=== PATIENT | female | born 1940 | race Native Hawaiian/Other Pacific Islander ===

== ENCOUNTER 2016-11-06 20:18 | Inpatient (IN) | payer MEDICARE, MEDICAID ==
[~2016-11-06] VITALS: Ht 160 cm; Wt 64.8 kg
[~2016-11-06 20:18] MED LIST: ASPI81TA82 PO; CARV6.252 PO; CENTTAB9 PO; CLON1 PO; FENO145T2 PO; FURO10S PO; NOVOLOGMXP SQ; OMEP20TA39 PO; TRAD5TAB PO; TRIM100T8 PO; VESI5TAB PO
[2016-11-06 20:23] VITALS: BP 153/69; PULSE 74; RESP 18; TEMP 98.1; O2SAT 99
[2016-11-06 20:29] VITALS: O2SAT 99
[2016-11-06] MEDS ORDERED: SODIUM CHLORIDE 0.9% FLUSH 10 ML FLUSH IVF PRN (20:30)
[2016-11-06] MEDS ORDERED: ASPIRIN 81 MG CHEW TAB PO ONE (20:30)
[2016-11-06 20:42] VITALS: BP 161/88
--- NOTE | 2016-11-06 20:44 | RADRPT ---
EXAM DATE/TIME: 11/06/2016 20:32 [facility] COMPARISON: No previous studies available for comparison. INDICATIONS : Chest pain. MEDICAL HISTORY : Hypertension. Renal failure. SURGICAL HISTORY : None. ENCOUNTER: Initial ACUITY: 1 day PAIN SCORE: Non-responsive. LOCATION: Bilateral chest FINDINGS: A single view of the chest demonstrates the lungs to be symmetrically aerated without evidence of mas s, infiltrate or effusion. The cardiomediastinal contours are unremarkable. Osseous structures are intact. CONCLUSION: No acute disease. Frantz Ryder MD on November 06, 2016 at 20:42 Board Certified Radiologist. This report was verified electronically.
[2016-11-06] MEDS ORDERED: PROT40TA PO (20:45)
[2016-11-06] MEDS ORDERED: LIDOCAINE VISCOUS 2% SOLN 15 ML UDC PO ONE (21:00)
[2016-11-06] MEDS ORDERED: ALUMINUM/MAGNESIUM/SIMETH 30 ML CUP PO ONE (21:00)
[2016-11-06] MEDS ORDERED: FAMOTIDINE 20 MG/2 ML VIAL IV PUSH ONE (21:00)
[2016-11-06 21:01] LABS: AUTOMATED NEUTROPHIL # 10.4 TH/MM3 (1.8-7.7); BASOPHIL # 0.1 TH/MM3 (0-0.2); BASOPHIL % 0.6 % (0.0-2.0); EOSINOPHIL # 0.2 TH/MM3 (0-0.4); EOSINOPHIL % 1.6 % (0.0-4.0); HEMATOCRIT 35.5 % (35.0-46.0); HEMO FLAGS DIFF FINAL; LYMPH % 17.8 % (9.0-44.0); LYMPHOCYTE # 2.6 TH/MM3 (1.0-4.8); MEAN CELL VOLUME 86.6 FL (80.0-100.0); MEAN CORPUSCULAR HGB CONC 32.3 % (32.0-36.0); MONO % 7.3 % (0.0-8.0); NEUT % 72.7 % (16.0-70.0); PLATELET COUNT 289 TH/MM3 (150-450); RED BLOOD COUNT 4.09 MIL/MM3 (4.00-5.30); RED CELL DISTRIBUTION WIDTH 13.5 % (11.6-17.2); WHITE BLOOD COUNT 14.3 TH/MM3 (4.0-11.0)
[2016-11-06 21:14] LABS: APTT (PATIENT) 26.6 SEC (24.3-30.1); PROTHROMBIN TIME - PATIENT 10.8 SEC (9.8-11.6)
[2016-11-06 21:25] LABS: ALT (GPT) 20 U/L (10-53); ANION GAP 9 MEQ/L (5-15); AST (GOT) 18 U/L (15-37); BICARBONATE 21.2 MEQ/L (21.0-32.0); BLOOD UREA NITROGEN 33 MG/DL (7-18); CHLORIDE 99 MEQ/L (98-107); GLOMERULAR FILTRATION RATE 37 ML/MIN (>89); MAGNESIUM 1.6 MG/DL (1.5-2.5); POTASSIUM 6.1 MEQ/L (3.5-5.1); SODIUM (NA) 129 MEQ/L (136-145)
[2016-11-06 21:29] LABS: ALKALINE PHOSPHATASE 96 U/L (45-117); TOTAL BILIRUBIN ADULT 0.3 MG/DL (0.2-1.0)
[2016-11-06 21:32] LABS: CREATINE KINASE 68 U/L (26-192)
[2016-11-06] MEDS ORDERED: SODIUM POLYSTYRENE SULFONATE SUSP 15 GM/60 ML CUP PO ONE (21:45)
[2016-11-06] MEDS ORDERED: SODIUM CHLORID 0.9% 500 ML INJ 500 ML IV ONE (21:45)
[2016-11-06] MEDS ORDERED: HEPARIN SODIUM - IV 10,000 UNITS/10 ML VIAL IV ONE (21:45)
[2016-11-06] MEDS ORDERED: INSULIN HUMAN REGULAR 1,000 UNITS/10 ML VIAL IV PUSH ONE (21:45)
[2016-11-06] MEDS ORDERED: CALCIUM GLUCONATE 10% 1 GM/10 ML VIAL IV PUSH ONE (21:45)
[2016-11-06] MEDS ORDERED: MORPHINE SULFATE 4 MG/ML INJ IV PUSH ONE (21:45)
[2016-11-06] MEDS ORDERED: DEXTROSE 50% IN WATER 50 ML SYRINGE IV ONE (21:45)
--- NOTE | 2016-11-06 22:00 | PD ---
HPI Chief Complaint: Chest Pain Time Seen by Provider: 20:20 Travel History International Travel<30 days: No Contact w/Intl Traveler<30days: No Traveled to known affect area: No History of Present Illness HPI Patient is a 76-year-old female who comes in complaining of chest pain. She was walking up the stairs at a graduation when she felt pain in her back and then pain in her chest. She says she has never had pain like this before. She has not had any shortness of breath. She has not had any nausea or vomiting. She says right now the pain is in the center of her chest. Per family, she had a cardiac cath done in 2013 which was normal. She does have history of diabetes as well as hypertension. [facility] Past Medical History Diabetes: Yes Patient Takes Glucophage: No Diminished Hearing: No Hypertension: Yes Thyroid Disease: Yes (HYPO) Tetanus Vaccination: Unknown Influenza Vaccination: No ?: Not Social History Alcohol Use: No Tobacco Use: No Substance Use: No Allergies-Medications (Allergen,Severity, Reaction): Coded Allergies: No Known Allergies (Unverified , 11/06/16) Reported Meds & Prescriptions Reported Meds & Active Scripts Active Reported Protonix (Pantoprazole Sodium) 40 Mg Tab 40 Mg PO DAILY Novolog Mix 70/30 (Insulin Aspart Prota 70%/Aspart 30%) 100 Units/Ml Inj 16 Units SQ DAILYAC 16 UNITS AM/ 8 UNITS PM Centrum (Multivitamins) Tab 1 Tab PO DAILY Aspir-81 (Aspirin) 81 Mg Tab 81 Mg PO DAILY Fenofibrate 145 Mg Tab 145 Mg PO DAILY Tradjenta (Linagliptin) 5 Mg Tab 5 Mg PO DAILY Review of Systems Except as stated in HPI: all other systems reviewed are Neg General / Constitutional: No: Fever, Chills HENT: No: Headaches, Lightheadedness Cardiovascular: Positive: Chest Pain or Discomfort Respiratory: No: Cough, Shortness of Breath Gastrointestinal: No: Nausea, Vomiting Musculoskeletal: Positive: Pain Skin: No Rash, No Change in Pigmentation Neurologic: No: Weakness, Dizziness Physical Exam Narrative GENERAL: Awake and alert, in no acute distress. SKIN: Focused skin assessment warm/dry. HEAD: Atraumatic. Normocephalic. EYES: Pupils equal and round. No scleral icterus. ENT: Mucous membranes pink and moist. NECK: Trachea midline. No JVD. CARDIOVASCULAR: Regular rate and rhythm. No murmur appreciated. RESPIRATORY: No accessory muscle use. Clear to auscultation. Breath sounds equal bilaterally. GASTROINTESTINAL: Abdomen soft, non-tender, nondistended. MUSCULOSKELETAL: No obvious deformities. No clubbing. No cyanosis. No edema. NEUROLOGICAL: Awake and alert. No obvious cranial nerve deficits. Motor grossly within normal limits. Normal speech. PSYCHIATRIC: Appropriate mood and affect; insight and judgment normal. Data Data Last Documented VS Vital Signs Date Time Temp Pulse Resp B/P Pulse Ox O2 Delivery O2 Flow Rate FiO2 11/06/16 20:42 161/88 11/06/16 20:39 74 11/06/16 20:29 99 Nasal Cannula 2 11/06/16 20:23 98.1 18 Orders Ckmb (Isoenzyme) Profile (11/06/16 20:21) Complete Blood Count With Diff (11/06/16 20:21) Comprehensive Metabolic Panel (11/06/16 20:21) Magnesium (Mg) (11/06/16 20:21) Prothrombin Time / Inr (Pt) (11/06/16 20:21) Act Partial Throm Time (Ptt) (11/06/16 20:21) Troponin I (11/06/16 20:21) Lipase (11/06/16 20:21) Chest, Single Ap (11/06/16 20:21) Ecg Monitoring (11/06/16 20:21) Bilateral Bp Monitoring (11/06/16 20:21) Iv Access Insert/Monitor (11/06/16 20:21) Oximetry (11/06/16 20:21) Oxygen Administration (11/06/16 20:21) Aspirin Chew (Aspirin Chew) (11/06/16 20:30) Sodium Chloride 0.9% Flush (Ns Flush) (11/06/16 20:30) Famotidine Inj (Pepcid Inj) (11/06/16 21:00) Al-Mag Hy-Si 40-40-4 Mg/Ml Liq (Mag-Al P (11/06/16 21:00) Lidocaine 2% Viscous (Xylocaine 2% Visco (11/06/16 21:00) Electrocardiogram (11/06/16 20:15) Heparin Infusion KATHARINE.Q1H (11/06/16 21:41) Heparin Inj (Heparin Inj) (11/06/16 21:45) Heparin Inj (Heparin Inj) (11/07/16 03:45) Heparin Inj (Heparin Inj) (11/07/16 03:45) Heparin-D5w Inj (Heparin-D5w Inj) (11/06/16 21:45) Cbc No Diff, Includes Plts (11/09/16 06:00) Act Partial Throm Time (Ptt) (11/07/16 04:41) Occult Blood (Hemoccult) Stool (11/06/16 21:41) Sodium Chlorid 0.9% 500 Ml Inj (Ns 500 M (11/06/16 21:45) Insulin Human Regular Inj (Novolin R Inj (11/06/16 21:45) Dextrose 50% In Avery (Syr) Inj (D50w (Syr (11/06/16 21:45) Sodium Polysty Sulfate Liq (Kayexalate L (11/06/16 21:45) Calcium Gluconate Inj (Calcium Gluconate (11/06/16 21:45) Morphine Inj (Morphine Inj) (11/06/16 21:45) Admit Order (Ed Use Only) (11/06/16 ) Labs Laboratory Tests Test 11/06/16 20:28 White Blood Count 14.3 TH/MM3 Red Blood Count 4.09 MIL/MM3 Hemoglobin 11.5 GM/DL Hematocrit 35.5 % Mean Corpuscular Volume 86.6 FL Mean Corpuscular Hemoglobin 28.0 PG Mean Corpuscular Hemoglobin 32.3 % Concent Red Cell Distribution Width 13.5 % Platelet Count 289 TH/MM3 Mean Platelet Volume 8.6 FL Neutrophils (%) (Auto) 72.7 % Lymphocytes (%) (Auto) 17.8 % Monocytes (%) (Auto) 7.3 % Eosinophils (%) (Auto) 1.6 % Basophils (%) (Auto) 0.6 % Neutrophils # (Auto) 10.4 TH/MM3 Lymphocytes # (Auto) 2.6 TH/MM3 Monocytes # (Auto) 1.0 TH/MM3 Eosinophils # (Auto) 0.2 TH/MM3 Basophils # (Auto) 0.1 TH/MM3 CBC Comment DIFF FINAL Differential Comment Prothrombin Time 10.8 SEC Prothromb Time International 1.0 RATIO Ratio Activated Partial 26.6 SEC Thromboplast Time Sodium Level 129 MEQ/L Potassium Level 6.1 MEQ/L Chloride Level 99 MEQ/L Carbon Dioxide Level 21.2 MEQ/L Anion Gap 9 MEQ/L Blood Urea Nitrogen 33 MG/DL Creatinine 1.40 MG/DL Estimat Glomerular Filtration 37 ML/MIN Rate Random Glucose 171 MG/DL Calcium Level 9.0 MG/DL Magnesium Level 1.6 MG/DL Total Bilirubin 0.3 MG/DL Aspartate Amino Transf 18 U/L (AST/SGOT) Alanine Aminotransferase 20 U/L (ALT/SGPT) Alkaline Phosphatase 96 U/L Total Creatine Kinase 68 U/L Troponin I 0.41 NG/ML Total Protein 8.6 GM/DL Albumin 3.3 GM/DL Lipase 497 U/L [facility] Medical Decision Making Medical Screen Exam Complete: Yes Emergency Medical Condition: Yes Interpretation(s) ECG shows left bundle branch block, reportedly new per patient's family. Differential Diagnosis ACS versus NSTEMI versus STEMI versus pancreatitis versus pneumonia Narrative Course Patient is a 76-year-old female comes in complaining of chest pain and back pain. Exam shows no acute abnormalities. IV established, labs sent, patient connected to the varnisher plasticoater. ECG shows left bundle branch block, there are no old ones to compare to, family says this is new. Labs show elevated lipase to 497. Troponin is elevated to 0.41. I spoke with Dr. York of cardiology, regarding possible heart cath. He suggests medical management at this time. Patient started on heparin drip. Of note, patient also had an elevated potassium to 6.1. Per family she has been having issues with an elevated potassium for the past few weeks. She was given Kayexalate by her physician 2 weeks ago which brought her potassium back down to 5.2. Patient given Kayexalate here as well as calcium, dextrose, insulin. Patient given IV fluids as well as morphine for pain. She was given aspirin as well. Patient also received a GI cocktail as family requested because she has terrible GERD. Patient will be admitted for further management. Diagnosis Primary Impression: NSTEMI (non-ST elevated myocardial infarction) Additional Impressions: Pancreatitis Qualified Code: K85.90 - Acute pancreatitis, unspecified complication status, unspecified pancreatitis type Hyperkalemia Admitting Information Admitting Physician Requests: Admit Condition: Stable Didi Leon MD November 06, 2016 22:00
[2016-11-06] MEDS: HEPARIN-D5W INJ 250 ML IV SCH (22:30)
[2016-11-06] MEDS ORDERED: NALOXONE HCL 0.4 MG/ML AMP IV PRN (23:15)
[2016-11-06] MEDS ORDERED: SODIUM CHLORIDE 0.9% FLUSH 10 ML FLUSH IV FLUSH PRN (23:15)
[2016-11-06 23:19] VITALS: BP 147/66; PULSE 74; RESP 18; O2SAT 97
[2016-11-07] VITALS (17 sets, daily range): BP systolic 124–176; BP diastolic 60–88; PULSE 74–110; RESP 14–51; TEMP 98–99; O2SAT 97–100
[2016-11-07 01:03] LABS: BICARBONATE 19.8 MEQ/L (21.0-32.0); POTASSIUM 5.2 MEQ/L (3.5-5.1)
[2016-11-07] MEDS ORDERED: CHLORHEXIDINE GLUCONATE 2 % 1 PACK (2 CLOTHS) TOP PRN (02:00)
[2016-11-07] MEDS ORDERED: MISCELLANEOUS NURSING INFORMATION XX SCH (02:00)
[2016-11-07] MEDS: CHLORHEXIDINE GLUCONATE 2 % 1 PACK (2 CLOTHS) TOP SCH (02:58)
[2016-11-07] MEDS ORDERED: HEPARIN SODIUM - IV 10,000 UNITS/10 ML VIAL IV PRN ×2 (03:45)
--- NOTE | 2016-11-07 05:06 | HHI.HP ---
[facility]Staff Admission Diagnosis NSTEMI, Pancreatitis, hyperkalemia Diagnoses: (1) Hyperkalemia Chief Complaint: chest and back pain Travel History International Travel<30 Days: No Contact w/Intl Traveler <30 Da: No Traveled to Known Affected Are: No History of Present Illness Written by Ivett Blakely, acting as scribe for Dr. Love on 11/07/16 at 05:05. Mrs. Whiting is a 76-year-old female with a history of diabetes and hypertension who presented to the emergency room on 11/06/2016 complaining of chest pain. EKG showed left bundle branch block (possibly new), troponin I was elevated at 0.41 , potassium elevated at 6.1, and lipase also elevated at 497. The patient was attending her granddaughters graduation at the [facility] when the patient developed pain in the central chest and her back. The pain began at about 5 p.m. last evening while the patient was climbing stairs and was not relieved by rest. Symptoms were not exacerbated by inspiration and were accompanied by a small amount of diaphoresis. Back pain improved with massage. Patient complaining of right shoulder pain during visit worse with blood pressure cuff inflation. Denies chest pain that brought her to ER yesterday. Denies nausea, vomiting, fever, shortness of breath, orthopnea, dysuria, hematuria, and urinary frequency. Has a history of leg swelling for "a long time" Then patient had an Echo and Angiogram 4 years ago for chest pain - tests were negative. Review of Systems Except as stated in HPI: all other systems reviewed are Neg Past Family Social History Past Medical History Hypertension Type 2 DM Lung CA Hypothyroidism Elevated uric acid Osteoporosis Arthritis . Past Surgical History Right lobectomy 2002 for lung CA Bilateral cataract surgery . Reported Medications Reported Meds & Active Scripts Active Reported Protonix (Pantoprazole Sodium) 40 Mg Tab 40 Mg PO DAILY Novolog Mix 70/30 (Insulin Aspart Prota 70%/Aspart 30%) 100 Units/Ml Inj 16 Units SQ DAILYAC 16 UNITS AM/ 8 UNITS PM Centrum (Multivitamins) Tab 1 Tab PO DAILY Aspir-81 (Aspirin) 81 Mg Tab 81 Mg PO DAILY Fenofibrate 145 Mg Tab 145 Mg PO DAILY Tradjenta (Linagliptin) 5 Mg Tab 5 Mg PO DAILY Allergies: Coded Allergies: Amlodipine (Verified Allergy, Severe, Angioedema, 11/07/16) Active Ordered Medications Current Medications Aspirin (Aspirin Chew) 162 mg ONCE ONCE PO Last administered on 11/06/16 20: 39; Start 11/06/16 at 20:30; Stop 11/06/16 at 20:31; Status DC Sodium Chloride (NS Flush) 2 ml UNSCH PRN IVF FLUSH AFTER USING IV ACCESS; Start 11/06/16 at 20:30; Stop 11/06/16 at 23:16; Status DC Famotidine (Pepcid Inj) 20 mg ONCE ONCE IV PUSH Last administered on 21:19; Start 11/06/16 at 21:00; Stop 11/06/16 at 21:02; Status DC Al Hydrox/Mg Hydrox/Simethicone (Mag-Al Plus Susp Liq) 30 ml ONCE ONCE PO Last administered on 11/06/16 21:19; Start 11/06/16 at 21:00; Stop 11/06/16 at 21:02; Status DC Lidocaine HCl (Xylocaine 2% Viscous) 15 ml ONCE ONCE PO Last administered on 21:19; Start 11/06/16 at 21:00; Stop 11/06/16 at 21:02; Status DC Heparin Sodium (Porcine) (Heparin Inj) 3,600 units ONCE ONCE IV Last administered on 11/06/16 22:22; Start 11/06/16 at 21:45; Stop 11/06/16 at 21:46 ; Status DC Heparin Sodium (Porcine) (Heparin Inj) 5,000 units UNSCH PRN IV APTT LESS THAN 25; Start 11/07/16 at 03:45 Heparin Sodium (Porcine) 2500 units 2,500 units UNSCH PRN IV APTT 25 TO 39; Start 11/07/16 at 03:45 Heparin Sodium/ Dextrose 250 ml @ 0 mls/hr TITRATE IV Last administered on 11/06 22:30; Start 11/06/16 at 21:45 Sodium Chloride (NS 500 ml Inj) 500 ml @ 500 mls/hr BOLUS ONCE IV Last administered on 11/06/16 22:20; Start 11/06/16 at 21:45; Stop 11/06/16 at 22:44 ; Status DC Insulin Human Regular (NovoLIN R INJ) 8 units ONCE ONCE IV PUSH Last administered on 11/06/16 22:29; Start 11/06/16 at 21:45; Stop 11/06/16 at 21:46 ; Status DC Dextrose (D50w (Syr) Inj) 25 ml ONCE ONCE IV Last administered on 11/06/16 22 :20; Start 11/06/16 at 21:45; Stop 11/06/16 at 21:46; Status DC Sodium Polystyrene Sulfonate (Kayexalate Liq) 15 gm ONCE ONCE PO Last administered on 11/06/16 22:21; Start 11/06/16 at 21:45; Stop 11/06/16 at 21:46 ; Status DC Calcium Gluconate (Calcium Gluconate Inj) 1 gm ONCE ONCE IV PUSH Last administered on 11/06/16 22:21; Start 11/06/16 at 21:45; Stop 11/06/16 at 21:46 ; Status DC Morphine Sulfate (Morphine Inj) 2 mg ONCE ONCE IV PUSH Last administered on 22:21; Start 11/06/16 at 21:45; Stop 11/06/16 at 21:46; Status DC Sodium Chloride (NS Flush) 2 ml UNSCH PRN IV FLUSH FLUSH AFTER USING IV ACCESS ; Start 11/06/16 at 23:15 Sodium Chloride (NS Flush) 2 ml BID IV FLUSH ; Start 11/07/16 at 09:00 Naloxone HCl (Narcan Inj) 0.4 mg UNSCH PRN IV SEE LABEL COMMENTS; Start at 23:15 Miscellaneous Information 1 [id number] XX Last administered on 11/07/16 02:00; Start 11/07/16 at 02:00 Chlorhexidine Gluconate (Chlorhexidine 2% Cloth) 3 pack Taper DAILY@04 TOP Last administered on 11/07/16 02:58; Start 11/07/16 at 04:00; Stop 11/03/17 at 03:59 Chlorhexidine Gluconate (Chlorhexidine 2% Cloth) 3 pack UNSCH PRN TOP HYGIENIC CARE; Start 11/07/16 at 02:00 Pneumococcal Polyvalent Vaccine (Pneumovax-23 Inj) 25 mcg ONCE ONCE IM ; Start 11/08/16 at 10:00; Stop 11/08/16 at 10:01 . Family History No known family history of polycystic kidney disease Father with CVA Mother with stomach CA . Social History Air travel from [facility] in July 2016 . Physical Exam Vital Signs Vital Signs Date Time Temp Pulse Resp B/P Pulse Ox O2 Delivery O2 Flow Rate FiO2 11/07/16 04:00 76 11/07/16 04:00 98.6 76 19 169/77 98 11/07/16 02:30 80 11/07/16 02:20 98.4 77 18 170/77 98 11/06/16 23:19 74 18 147/66 97 Nasal Cannula 2 11/06/16 20:42 161/88 11/06/16 20:39 74 11/06/16 20:29 99 Nasal Cannula 2 11/06/16 20:29 99 Nasal Cannula 2 11/06/16 20:23 98.1 74 18 153/69 99 Physical Exam GENERAL: This is a well-nourished, well-developed patient, in no apparent distress. SKIN: No rashes, ecchymoses or lesions. Cool and dry. HEAD: Atraumatic. Normocephalic. EYES: No scleral icterus. No injection or drainage. ENT: Nose without bleeding, purulent drainage. NECK: Trachea midline. No JVD or lymphadenopathy. CARDIOVASCULAR: Regular rate and rhythm without murmurs, gallops, or rubs. No pulse deficit - BP measured equal in both arms. RESPIRATORY: Clear to auscultation. Breath sounds equal bilaterally. No wheezes , rales, or rhonchi. GASTROINTESTINAL: Abdomen soft, non-tender, nondistended. No guarding. MUSCULOSKELETAL: Extremities without clubbing, cyanosis, or edema. No calf tenderness. Right shoulder pain worse with BP measurement; arm not swollen or erythematous. NEUROLOGICAL: Awake and alert. Motor and sensory grossly within normal limits. Normal speech. . Laboratory Laboratory Tests Test 11/06/16 11/07/16 11/07/16 20:28 00:15 02:30 White Blood Count 14.3 Red Blood Count 4.09 Hemoglobin 11.5 Hematocrit 35.5 Mean Corpuscular Volume 86.6 Mean Corpuscular Hemoglobin 28.0 Mean Corpuscular Hemoglobin 32.3 Concent Red Cell Distribution Width 13.5 Platelet Count 289 Mean Platelet Volume 8.6 Neutrophils (%) (Auto) 72.7 Lymphocytes (%) (Auto) 17.8 Monocytes (%) (Auto) 7.3 Eosinophils (%) (Auto) 1.6 Basophils (%) (Auto) 0.6 Neutrophils # (Auto) 10.4 Lymphocytes # (Auto) 2.6 Monocytes # (Auto) 1.0 Eosinophils # (Auto) 0.2 Basophils # (Auto) 0.1 CBC Comment DIFF FINAL Differential Comment Prothrombin Time 10.8 Prothromb Time International 1.0 Ratio Activated Partial 26.6 Thromboplast Time Sodium Level 129 131 Potassium Level 6.1 5.2 Chloride Level 99 104 Carbon Dioxide Level 21.2 19.8 Anion Gap 9 7 Blood Urea Nitrogen 33 29 Creatinine 1.40 1.23 Estimat Glomerular Filtration 37 43 Rate Random Glucose 171 118 Calcium Level 9.0 9.1 Magnesium Level 1.6 Total Bilirubin 0.3 Aspartate Amino Transf 18 (AST/SGOT) Alanine Aminotransferase 20 (ALT/SGPT) Alkaline Phosphatase 96 Total Creatine Kinase 68 Troponin I 0.41 Total Protein 8.6 Albumin 3.3 Lipase 497 Nasal Screen MRSA (PCR) MRSA NOT DETECTED Result Diagram: 11/06/16202711/07/16 0015 Imaging Last Impressions Chest X-Ray 11/06/162020 Signed Impressions: Service Date/Time: Sunday, November 06, 2016 20:32 - CONCLUSION: No acute disease. Frantz Ryder MD . Assessment and Plan Assessment and Plan Mrs. Whiting is a 76-year-old female who presented to the emergency room on 2016 complaining of chest pain. EKG showed left bundle branch block (possibly new), troponin I was elevated at 0.41, potassium elevated at 6.1, and lipase also elevated at 497. Possible NSTEMI/Atypical chest pain - 12 lead EKG with left bundle branch block possibly new - Serial cardiac enzymes and EKGs to r/o ACS - Continuous cardiac telemetry - Monitor vital signs q4h - Heparin drip - consult cardiology - assistance appreciated Hyperkalemia - Initial K+ 6.1, treated in ED and was 5.2 on recheck - Repeat BMP in a.m. and follow trends in K+ level - recommend discontinuation of home ARB - will add PRN hydralazine for blood pressure control Acute on chronic renal insufficiency - BUN 33, creatinine 1.40, estimated GFR 37 on admission - improved to BUN 29, creatinine 1.23, and estimated GFR 43 after fluid bolus in ER - Monitor BMP and follow trends in renal indices - Avoid nephrotoxins Mildly elevated lipase - Recheck lipase and follow results DVT prophylaxis - Currently on heparin gtt . This note was transcribed by marilu [Ivett Blakely]. I, Dr. Skyler Love personally performed the history, physical exam, and medical decision making; and confirmed the accuracy of the information in the transcribed note. Authenticated by Dr. Skyler Love on 11/07/16 at 05:05. Discussed Condition With ER physician, [employer]END[employer], patient, patient's son . Physician Certification 2 Midnight Certification Type: Admission for Inpatient Services Order for Inpatient Services The services are ordered in accordance with Medicare regulations or non- Medicare payer requirements, as applicable. In the case of services not specified as inpatient-only, they are appropriately provided as inpatient services in accordance with the 2-midnight benchmark. Estimated LOS (days): 3 days is the estimated time the patient will need to remain in the hospital, assuming treatment plan goals are met and no additional complications. Post-Hospital Plan: Not yet determined Ivett Blakely November 07, 2016 05:06 Skyler Love MD November 07, 2016 07:42
[2016-11-07 05:37] LABS: AUTOMATED NEUTROPHIL # 9.4 TH/MM3 (1.8-7.7); BASOPHIL # 0.1 TH/MM3 (0-0.2); BASOPHIL % 0.4 % (0.0-2.0); EOSINOPHIL # 0.1 TH/MM3 (0-0.4); EOSINOPHIL % 0.9 % (0.0-4.0); HEMATOCRIT 34.9 % (35.0-46.0); HEMO FLAGS DIFF FINAL; LYMPH % 17.7 % (9.0-44.0); LYMPHOCYTE # 2.2 TH/MM3 (1.0-4.8); MEAN CELL VOLUME 85.9 FL (80.0-100.0); MEAN CORPUSCULAR HEMOGLOBIN 28.6 PG (27.0-34.0); MEAN CORPUSCULAR HGB CONC 33.3 % (32.0-36.0); PLATELET COUNT 270 TH/MM3 (150-450); RED BLOOD COUNT 4.06 MIL/MM3 (4.00-5.30); RED CELL DISTRIBUTION WIDTH 13.4 % (11.6-17.2); WHITE BLOOD COUNT 12.5 TH/MM3 (4.0-11.0)
[2016-11-07 05:44] LABS: APTT (PATIENT) 65.4 SEC (24.3-30.1)
[2016-11-07] MEDS ORDERED: hydrALAZINE HCL 20 MG/ML VIAL IV PUSH PRN (06:00)
[2016-11-07] MEDS ORDERED: ACETAMINOPHEN 325 MG TAB PO PRN (06:00)
[2016-11-07 06:03] LABS: BICARBONATE 21.8 MEQ/L (21.0-32.0); POTASSIUM 5.6 MEQ/L (3.5-5.1)
[2016-11-07] MEDS ORDERED: INSULIN HUMAN REGULAR 1,000 UNITS/10 ML VIAL IV PUSH ONE (06:15)
[2016-11-07] MEDS ORDERED: SODIUM POLYSTYRENE SULFONATE SUSP 15 GM/60 ML CUP PO ONE ×2 (06:15→09:30)
[2016-11-07] MEDS ORDERED: DEXTROSE 50% IN WATER 50 ML VIAL(D50) IV PUSH ONE (06:15)
[2016-11-07] MEDS ORDERED: CALCIUM GLUCONATE 10% 1 GM/10 ML VIAL IV PUSH ONE (06:15)
[2016-11-07] MEDS ORDERED: DEXTROSE 50% IN WATER 50 ML VIAL(D50) IV PUSH PRN (06:30)
[2016-11-07] MEDS ORDERED: NITROGLYCERIN 0.4 MG SL 25 TABS/BTL SL PRN (07:00)
--- NOTE | 2016-11-07 08:07 | MB ---
cc: RUBEN LANDIN MD DATE OF CONSULTATION 11/07/2016 REASON FOR CONSULTATION Non-ST elevation NE. HISTORY OF PRESENT ILLNESS Ms. Whiting is a 76-year-old female who does have a history of hypertension and diabetes. She presented after the onset of substernal chest pain that radiated to her back. Her son actually reports that she has had some discomfort while climbing stairs that apparently was not relieved by rest. Her son actually reports that she has had some discomfort while climbing stairs that apparently was not relieved by rest. This precipitated her emergency room visit. Of note, the patient does not speak good [place]ian and her son translated. He reports that she has had electrolyte difficulties with hyperkalemia most recently. She also has had a heart catheterization four years ago that was normal. PAST MEDICAL HISTORY Significant for: 1. Hypertension 2. Diabetes 3. Lung cancer 4. Hypothyroidism 5. Osteoporosis 6. Arthritis 7. Hyperlipidemia PAST SURGICAL HISTORY Her surgical history does include a: 1. A lobectomy for lung cancer. 2. Cataract surgery OUTPATIENT MEDICATIONS Include: 1. Protonix 2. Insulin 3. Aspirin 4. Fenofibrate 5. Tradjenta ALLERGIES AMLODIPINE FAMILY HISTORY Negative for CAD. SOCIAL HISTORY The patient is from [facility] and is here with her son today. REVIEW OF SYSTEMS The patient does complain of a headache, other than this and what is mentioned in the HPI, all 12 systems are negative. PHYSICAL EXAM VITAL SIGNS: 98.6, 76, 19, 169/77. GENERAL: She is a well-appearing elderly female who is in no apparent distress. NECK: Her neck is free from JVD. LUNGS: The lungs are bilaterally clear to auscultation. CARDIOVASCULAR: She has a normal S1 and S2. I did not appreciate any murmurs, rubs or gallops. ABDOMEN: Soft. EXTREMITIES: The extremities are free from edema. LABORATORY FINDINGS Significant for an initial sodium of 129, potassium of 6.1, creatinine of 1.4 and a lipase of 497. This morning her sodium is 132, potassium 5.6, creatinine 1.16, troponin 3.05 and lipase is 2.95. EKG shows normal sinus rhythm with an IVCD. IMPRESSIONS Non-ST elevation NE - It is not clear if this is a primary or a secondary event. I do believe she has had significant metabolic derangement that may have precipitated this. Additionally, her blood pressure has been a bit elevated with the CKD. Thus, I believe it is plausible that she may have normal coronaries and this would be a secondary NE. Nonetheless with her diabetes, I did suggest further evaluation with catheterization once she is stable. The son, however, indicated that she does not want catheterization. They will discuss this later and we will revisit this as I would wait until her electrolytes are stabilized in any case. I would place the patient on low-dose aspirin and a beta jemma. It is also reasonable to start an ALEX inhibitor as she is diabetic and her renal status appears to have stabilized. Hyperkalemia and hyponatremia - This is being managed by the primary team. Hypertension - As above. Dyslipidemia - We will obtain fasting lipids. Ruben Landin M.D. ALEXANDRA/ELAINE /7:30 AM /7:53 AM
[2016-11-07] MEDS: ASPIRIN 81 MG CHEW TAB CHEW SCH (08:46)
[2016-11-07] MEDS: CARVEDILOL 6.25 MG TAB PO SCH ×2 (08:46→20:49)
[2016-11-07] MEDS: SODIUM CHLORIDE 0.9% FLUSH 10 ML FLUSH IV FLUSH SCH ×2 (08:46→20:49)
[2016-11-07 09:51] LABS: APTT (PATIENT) 52.7 SEC (24.3-30.1)
--- NOTE | 2016-11-07 11:52 | RADRPT ---
EXAM DATE/TIME: 11/07/2016 09:34 [facility] COMPARISON: No previous studies available for comparison. INDICATIONS : Pancreatitis. Abdominal pain. Epigastric pain. MEDICAL HISTORY : Hypothyroidism. Hypercholesterolemia. Glaucoma. Hypertension. Renal failure. Polycystic renal disea se. UTI. Arthritis. Osteoporsis. Diabetes. SURGICAL HISTORY : Cataract srugery. Right lung lobectomy. ENCOUNTER: Initial ACUITY: 1 day PAIN SCORE: 0/10 LOCATION: Bilateral upper quadrant MEASUREMENTS: LIVER: 12.4 cm length COMMON DUCT: 6 mm RIGHT KIDNEY: 10.3 x 4.9 x 4.1 cm LEFT KIDNEY: 11.1 x 5.8 x 5.6 cm SPLEEN: 9.3 cm length AORTA: 1.6cm maximal FINDINGS: The liver is normal in size, shape and echogenicity. The spleen is normal in size. There is a single stone within the gallbladder without wall thickening or pericholecystic fluid measuring 10 mm. The pa ncreas demonstrates no evidence of mass and there is no dilatation of the pancreatic duct. There is h epatopedal flow within the portal vein. Ultrasound of the kidneys demonstrate normal size shape and e chogenicity. No hydronephrosis or mass lesions are identified. There are simple cysts on the left the largest measuring 4 cm. The visualized portion of the aorta and inferior vena cava are unremarkable. CONCLUSION: 1. Cholelithiasis without findings of cholecystitis or pancreatitis 2. Multiple left renal cysts 1. Keagan Shi MD on November 07, 2016 at 11:47 Board Certified Radiologist. This report was verified electronically.
[2016-11-07] MEDS: PANTOPRAZOLE SOD 40 MG DELAYED RELEASE TAB PO SCH ×2 (13:23→13:45)
--- NOTE | 2016-11-07 13:42 | HHI.PR ---
Addendum to Inpatient Note Addendum Reason: Additional Documentation Additional Information The patient was resting comfortably. Her family was at the bedside. The family seemed interested in pursuing cardiac catheterization. The family also states that the patient was told by her kidney doctor that she has a urinary tract infection. The patient had no acute complaints. She denied chest pain or shortness of breath. Discussed with nursing. Follow BMP has potassium level has been elevated. Check a urine sample. Follow up with cardiology. Continue heparin drip. Jaspreet Mcnally DO November 07, 2016 13:42
--- NOTE | 2016-11-07 14:52 | EKG ---
Date Performed: 11/06/2016 Time Performed: 20:15:22 PTAGE: 76 years EKG: Sinus rhythm MARKED LEFT AXIS DEVIATION LEFT BUNDLE BRANCH BLOCK ABNORMAL ECG INTERPRETATION BASED ON A DEFAULT A GE OF 40 YEARS NO PREVIOUS TRACING DOCTOR: Nasim Parker Interpretating Date/Time 11/07/2016 14:52:25
--- NOTE | 2016-11-07 14:53 | EKG ---
Date Performed: 11/07/2016 Time Performed: 02:25:26 PTAGE: 76 years EKG: Sinus rhythm Left axis deviation Left bundle branch block Compared to prior tracing no significant change Abnorma l ECG PREVIOUS TRACING : 11/06/2016 20.15 DOCTOR: Nasim Parker Interpretating Date/Time 11/07/2016 14:52:38
--- NOTE | 2016-11-07 14:55 | EKG ---
Date Performed: 11/07/2016 Time Performed: 08:08:42 PTAGE: 76 years EKG: Sinus rhythm MARKED LEFT AXIS DEVIATION LEFT BUNDLE BRANCH BLOCK Compared to prior tracing no significant change ABNORMAL ECG PREVIOUS TRACING : 11/07/2016 02.25 DOCTOR: Nasim Parker Interpretating Date/Time 11/07/2016 14:53:08
[2016-11-07 15:06] LABS: BICARBONATE 21.3 MEQ/L (21.0-32.0); POTASSIUM 4.7 MEQ/L (3.5-5.1)
[2016-11-07] MEDS: INSULIN ASPART SUPPLEMENTAL SCALE SQ SCH ×2 (16:00→20:56)
--- NOTE | 2016-11-07 19:04 | EC ---
Study Study Date:11/07/2016 STUDY CONCLUSIONS SUMMARY - Left ventricle: There is johnny apical akinesis. The cavity size was normal. Wall thickness was increased in a pattern of mild LVH. Systolic function was moderately to severely reduced. The estimated ejection fraction was in the range of 30% to 35%. - Mitral valve: Mild regurgitation. - Tricuspid valve: Mild regurgitation. If LV function is below 40, please consider prescribing an ACEI or ARB or document rationale for non-use. PROCEDURE DATA STUDY STATUS: Elective. Procedure: Transthoracic echocardiography. Image quality was good. Scanning was performed from the parasternal, apical, and subcostal acoustic windows. Study completion: The patient tolerated the procedure well. Transthoracic echocardiography. M-mode, complete 2D, complete spectral Doppler, and color Doppler. Patient status: Inpatient. CARDIAC ANATOMY LEFT VENTRICLE: There is johnny apical akinesis. The cavity size was normal. Wall thickness was increased in a pattern of mild LVH. Systolic function was moderately to severely reduced. The estimated ejection fraction was in the range of 30% to 35%. AORTIC VALVE: Trileaflet; normal thickness leaflets. Doppler: Transvalvular velocity was within the normal range. There was no stenosis. No regurgitation. AORTA: Aortic root: The aortic root was normal in size. MITRAL VALVE: Structurally normal valve. Doppler: Transvalvular velocity was within the normal range. There was no evidence for stenosis. Mild regurgitation. LEFT ATRIUM: The atrium was normal in size. RIGHT VENTRICLE: The cavity size was normal. Wall thickness was normal. PULMONIC VALVE: Doppler: Transvalvular velocity was within the normal range. There was no evidence for stenosis. No regurgitation. TRICUSPID VALVE: Structurally normal valve. Doppler: Transvalvular velocity was within the normal range. Mild regurgitation. PULMONARY ARTERY: The main pulmonary artery was normal-sized. Systolic pressure was within the normal range. RIGHT ATRIUM: The atrium was normal in size. PERICARDIUM: There was no pericardial effusion. SYSTEMIC VEINS: Inferior vena cava: The vessel was normal in size. BASIC MEASUREMENTS ADULT NORMAL Left ventricle LV internal dimension, ED, chordal level, *39.6 mm 43-52 PLAX LV internal dimension, ES, chordal level, 35 mm 23-38 PLAX Fractional shortening, chordal level, PLAX *12 % >29 LV posterior wall thickness, ED 8.44 mm IVS/LVPW ratio, ED *1.69 <1.3 Ventricular septum Septal thickness, ED 14.3 mm Aortic valve Leaflet separation 22 mm 15-26 Right ventricle RV internal dimension, ED, PLAX 24.3 mm 19-38 BASIC MEASUREMENTS ADULT NORMAL Aortic valve Leaflet separation 22 mm 15-26 Aorta Root diameter, ED 28 mm 20-37 Left atrium Anterior-posterior dimension, ES 28 mm 19-40 LA/aortic root ratio 1 LEGEND: Mean values are shown as u=mean value. Asterisk (*) wiley values outside specified normal range. Prepared and signed by Yvette Landin [id number]
[2016-11-07] MEDS ORDERED: ATORVASTATIN 20 MG TAB PO SCH (21:00)
[2016-11-07 22:39] LABS: BACTERIA, URINE RARE /hpf; BLOOD, URINE NEG (NEG); COMMENT (UR) CULTURE INDICATED; CULTURE IF INDICATED CULTURE INDICATED; GLUCOSE,URINE NEG (NEG); KETONE, URINE NEG (NEG); MUCUS URINE FEW /lpf (OCC); NITRITE,URINE NEG (NEG); PH, URINE 5.5 (5.0-8.5); URINE COLOR LIGHT-YELLOW (YELLW/STRAW)
[2016-11-08] VITALS (19 sets, daily range): BP systolic 111–147; BP diastolic 62–88; PULSE 74–92; RESP 16–22; TEMP 97.4–98.6; O2SAT 97–100
[2016-11-08 01:19] LABS: BICARBONATE 23.3 MEQ/L (21.0-32.0); POTASSIUM 4.5 MEQ/L (3.5-5.1)
[2016-11-08] MEDS: CHLORHEXIDINE GLUCONATE 2 % 1 PACK (2 CLOTHS) TOP SCH (04:00)
[2016-11-08 06:20] LABS: APTT (PATIENT) 53.5 SEC (24.3-30.1)
[2016-11-08 06:29] LABS: BICARBONATE 20.9 MEQ/L (21.0-32.0); POTASSIUM 4.4 MEQ/L (3.5-5.1)
[2016-11-08] MEDS: INSULIN ASPART SUPPLEMENTAL SCALE SQ SCH ×4 (06:38→21:00)
--- NOTE | 2016-11-08 06:44 | PD.CARD.PN ---
Subjective Subjective Remarks Pt without complaints Objective Medications Current Medications Medications (Trade) Dose Ordered Sig/Mag Route Start Time Stop Time Status Last Admin (Heparin Inj) 5,000 units UNSCH PRN IV 11/07/16 03:45 Heparin Sodium (Porcine) 2500 units 2,500 units UNSCH PRN IV 11/07/16 03:45 (Heparin-D5W Inj) 250 ml @ 0 mls/hr TITRATE IV 11/06/16 21:45 11/06/16 22:30 (NS Flush) 2 ml UNSCH PRN IV FLUSH 11/06/16 23:15 (NS Flush) 2 ml BID IV FLUSH 11/07/16 09:00 11/07/16 20:49 (Narcan Inj) 0.4 mg UNSCH PRN IV 11/06/16 23:15 Miscellaneous Information 1 Q361D XX 11/07/16 02:00 11/07/16 02:00 (Chlorhexidine 2% Cloth) 3 pack Taper DAILY@04 TOP 11/07/16 04:00 11/03/17 03:59 11/08/16 04:00 (Chlorhexidine 2% Cloth) 3 pack UNSCH PRN TOP 11/07/16 02:00 (Pneumovax-23 Inj) 25 mcg ONCE ONCE IM 11/08/16 10:00 11/08/16 10:01 (Tylenol) 650 mg Q4H PRN PO 11/07/16 06:00 (Apresoline Inj) 10 mg Q30M PRN IV PUSH 11/07/16 06:00 (D50w (Vial) Inj) 50 ml Q1HR PRN IV PUSH 11/07/16 06:30 (Nitrostat Sl) 0.4 mg Q5M PRN SL 11/07/16 07:00 11/07/16 06:58 (Aspirin Chew) 81 mg DAILY CHEW 11/07/16 09:00 11/07/16 08:46 (Coreg) 6.25 mg Q12HR PO 11/07/16 09:00 11/07/16 20:49 (Lipitor) 20 mg HS PO 11/07/16 21:00 11/07/16 20:49 (Protonix) 40 mg DAILY PO 11/07/16 10:00 11/07/16 13:23 (Protonix) 40 mg DAILY PO 11/07/16 13:45 Vital Signs / I&O Vital Signs Date Time Temp Pulse Resp B/P Pulse Ox O2 Delivery O2 Flow Rate FiO2 11/08/16 04:00 97.4 80 16 147/66 100 11/08/16 04:00 80 11/08/16 00:00 81 11/08/16 00:00 98.5 81 22 111/62 99 11/07/16 20:00 98.7 96 25 157/77 98 11/07/16 20:00 96 11/07/16 16:02 85 24 133/77 99 11/07/16 16:00 84 11/07/16 16:00 98.3 84 23 99 11/07/16 15:00 84 51 99 11/07/16 14:29 92 20 165/88 99 11/07/16 14:00 110 30 11/07/16 13:00 93 24 99 11/07/16 12:00 98.0 81 19 165/76 100 11/07/16 12:00 81 19 165/76 100 11/07/16 12:00 81 11/07/16 11:00 81 17 99 11/07/16 10:00 82 22 147/67 11/07/16 09:11 88 25 176/74 11/07/16 09:00 85 26 11/07/16 08:00 99.0 74 15 124/60 97 11/07/16 08:00 74 14 124/60 97 11/07/16 08:00 74 11/07/16 07:03 19 I/O 11/07/16 11/07/16 11/07/16 11/08/16 11/08/16 11/08/16 07:00 15:00 23:00 07:00 15:00 23:00 Intake Total 300 ml 309 ml 285 ml 298 ml Output Total 700 ml 1600 ml 500 ml 450 ml Balance -400 ml -1291 ml -215 ml -152 ml Intake Oral 250 ml 250 ml 240 ml 240 ml IV Total 50 ml 59 ml 45 ml 58 ml Output Urine Total 700 ml 1600 ml 500 ml 450 ml # Bowel Movements 0 3 0 0 Physical Exam GENERAL: Well developed, well nourished. No acute distress. HEENT: Jugular venous pressure is normal. CHEST: Lungs clear to auscultation bilaterally. Unlabored respiratory effort. CARDIAC: Regular rate and rhythm without S3, S4, or murmur. ABDOMEN: Soft, nontender, no hepatosplenomegaly. Bowel sounds present. EXTREMITIES: No clubbing, cyanosis, or edema. Laboratory Laboratory Tests Test 11/07/16 11/07/16 11/07/16 11/08/16 09:24 13:48 21:30 00:10 Activated Partial 52.7 SEC Thromboplast Time Sodium Level 136 MEQ/L 134 MEQ/L Potassium Level 4.7 MEQ/L 4.5 MEQ/L Chloride Level 103 MEQ/L 103 MEQ/L Carbon Dioxide Level 21.3 MEQ/L 23.3 MEQ/L Anion Gap 12 MEQ/L 8 MEQ/L Blood Urea Nitrogen 21 MG/DL 22 MG/DL Creatinine 1.22 MG/DL 1.27 MG/DL Estimat Glomerular Filtration 43 ML/MIN 41 ML/MIN Rate Random Glucose 184 MG/DL 130 MG/DL Calcium Level 9.5 MG/DL 9.2 MG/DL Total Creatine Kinase 119 U/L Troponin I 2.39 NG/ML Urine Color LIGHT-YELLOW Urine Turbidity HAZY Urine pH 5.5 Urine Specific [place] 1.007 Urine Protein NEG mg/dL Urine Glucose (UA) NEG mg/dL Urine Ketones NEG mg/dL Urine Occult Blood NEG Urine Nitrite NEG Urine Bilirubin NEG Urine Urobilinogen LESS THAN 2.0 MG/DL Urine Leukocyte Esterase MOD Urine RBC LESS THAN 1 /hpf Urine WBC 18 /hpf Urine Bacteria RARE /hpf Urine Mucus FEW /lpf Microscopic Urinalysis Comment CULTURE INDICATED Test 11/08/16 04:46 Activated Partial 53.5 SEC Thromboplast Time Sodium Level 133 MEQ/L Potassium Level 4.4 MEQ/L Chloride Level 102 MEQ/L Carbon Dioxide Level 20.9 MEQ/L Anion Gap 10 MEQ/L Blood Urea Nitrogen 21 MG/DL Creatinine 1.23 MG/DL Estimat Glomerular Filtration 43 ML/MIN Rate Random Glucose 140 MG/DL Calcium Level 9.1 MG/DL Imaging ECHO- EF 30% with anteroapical hypokinesis Assessment and Plan Assessment and Plan Non-ST elevation ME - ECHO with anterior wall down, suggest cath -pt and son agreeable. They are aware she is at higher risk given her presentation with electrolytes and CKD (10-20%) for complications. Despite this they are agreeable. I will see if Dr York and cath her today.- Pt aware Hyperkalemia and hyponatremia - better, This is being managed by the primary team. Hypertension - Dyslipidemia - Yvette Landin MD November 08, 2016 06:44
[2016-11-08] MEDS: ASPIRIN 81 MG CHEW TAB CHEW SCH (08:18)
[2016-11-08] MEDS: SODIUM CHLORIDE 0.9% FLUSH 10 ML FLUSH IV FLUSH SCH ×2 (08:18→21:00)
[2016-11-08] MEDS: PANTOPRAZOLE SOD 40 MG DELAYED RELEASE TAB PO SCH ×2 (08:19)
[2016-11-08] MEDS: HEPARIN-D5W INJ 250 ML IV SCH (08:19)
[2016-11-08] MEDS: CARVEDILOL 6.25 MG TAB PO SCH ×2 (08:20→21:05)
[2016-11-08] MEDS ORDERED: PNEUMOCOCCAL POLYVALENT INJ 25 MCG/0.5 ML SYR IM ONE (10:00)
--- NOTE | 2016-11-08 10:07 | HHI.PR ---
Subjective Remarks The patient was resting comfortably in bed. Her son was at the bedside. Their questions were answered. They are wondering when the catheterization would occur. They also had questions about the patient's problems with high potassium levels. Objective Vitals Vital Signs Date Time Temp Pulse Resp B/P Pulse Ox O2 Delivery O2 Flow Rate FiO2 11/08/16 08:00 98.6 84 16 145/76 99 11/08/16 08:00 84 11/08/16 07:00 86 22 100 11/08/16 06:00 74 20 116/67 99 11/08/16 05:00 78 20 98 11/08/16 04:00 97.4 80 16 147/66 100 11/08/16 04:00 80 16 147/66 100 11/08/16 04:00 80 11/08/16 00:00 81 11/08/16 00:00 98.5 81 22 111/62 99 11/07/16 20:00 98.7 96 25 157/77 98 11/07/16 20:00 96 11/07/16 16:02 85 24 133/77 99 11/07/16 16:00 84 11/07/16 16:00 98.3 84 23 99 11/07/16 15:00 84 51 99 11/07/16 14:29 92 20 165/88 99 11/07/16 14:00 110 30 11/07/16 13:00 93 24 99 11/07/16 12:00 98.0 81 19 165/76 100 11/07/16 12:00 81 19 165/76 100 11/07/16 12:00 81 11/07/16 11:00 81 17 99 11/07/16 10:00 82 22 147/67 I/O 11/07/16 11/07/16 11/07/16 11/08/16 11/08/16 11/08/16 07:00 15:00 23:00 07:00 15:00 23:00 Intake Total 300 ml 309 ml 285 ml 298 ml Output Total 700 ml 1600 ml 500 ml 450 ml Balance -400 ml -1291 ml -215 ml -152 ml Intake Oral 250 ml 250 ml 240 ml 240 ml IV Total 50 ml 59 ml 45 ml 58 ml Output Urine Total 700 ml 1600 ml 500 ml 450 ml # Bowel Movements 0 3 0 0 Result Diagram: 11/07/16 0411 11/08/16 0446 Imaging Last Impressions Abdomen Ultrasound 11/07/16 0000 Signed Impressions: Service Date/Time: Monday, November 07, 2016 09:34 - CONCLUSION: 1. Cholelithiasis without findings of cholecystitis or pancreatitis 2. Multiple left renal cysts 1. Keagan Shi MD Chest X-Ray 11/06/162020 Signed Impressions: Service Date/Time: Sunday, November 06, 2016 20:32 - CONCLUSION: No acute disease. Frantz Ryder MD Objective Remarks GENERAL: This is a well-nourished, well-developed patient, in no apparent distress. SKIN: No rashes, ecchymoses or lesions. Cool and dry. HEAD: Atraumatic. Normocephalic. EYES: No scleral icterus. No injection or drainage. ENT: Nose without bleeding, purulent drainage. NECK: Trachea midline. No JVD or lymphadenopathy. CARDIOVASCULAR: Regular rate and rhythm without murmurs, gallops, or rubs. RESPIRATORY: Clear to auscultation. Breath sounds equal bilaterally. No wheezes , rales, or rhonchi. GASTROINTESTINAL: Abdomen soft, non-tender, nondistended. No guarding. MUSCULOSKELETAL: Extremities without clubbing, cyanosis, or edema. NEUROLOGICAL: Awake and alert. Motor and sensory grossly within normal limits. Normal speech. PSYCH: Calm. Medications and IVs Current Medications Medications (Trade) Dose Ordered Sig/Mag Route Start Time Stop Time Status Last Admin (Heparin Inj) 5,000 units UNSCH PRN IV 11/07/16 03:45 Heparin Sodium (Porcine) 2500 units 2,500 units UNSCH PRN IV 11/07/16 03:45 (Heparin-D5W Inj) 250 ml @ 0 mls/hr TITRATE IV 11/06/16 21:45 11/08/16 08:19 (NS Flush) 2 ml UNSCH PRN IV FLUSH 11/06/16 23:15 (NS Flush) 2 ml BID IV FLUSH 11/07/16 09:00 11/08/16 08:18 (Narcan Inj) 0.4 mg UNSCH PRN IV 11/06/16 23:15 Miscellaneous Information 1 Q361D XX 11/07/16 02:00 11/07/16 02:00 (Chlorhexidine 2% Cloth) 3 pack Taper DAILY@04 TOP 11/07/16 04:00 11/03/17 03:59 11/08/16 04:00 (Chlorhexidine 2% Cloth) 3 pack UNSCH PRN TOP 11/07/16 02:00 (Pneumovax-23 Inj) 25 mcg ONCE ONCE IM 11/08/16 10:00 11/08/16 10:01 (Tylenol) 650 mg Q4H PRN PO 11/07/16 06:00 (Apresoline Inj) 10 mg Q30M PRN IV PUSH 11/07/16 06:00 (D50w (Vial) Inj) 50 ml Q1HR PRN IV PUSH 11/07/16 06:30 (Nitrostat Sl) 0.4 mg Q5M PRN SL 11/07/16 07:00 11/07/16 06:58 (Aspirin Chew) 81 mg DAILY CHEW 11/07/16 09:00 11/08/16 08:18 (Coreg) 6.25 mg Q12HR PO 11/07/16 09:00 11/08/16 08:20 (Lipitor) 20 mg HS PO 11/07/16 21:00 11/07/16 20:49 (Protonix) 40 mg DAILY PO 11/07/16 10:00 11/08/16 08:19 (Protonix) 40 mg DAILY PO 11/07/16 13:45 A/P Problem List: (1) Hyperkalemia ICD Code: E87.5 Status: Acute Assessment and Plan NSTEMI/Atypical chest pain Troponin peaked at 3.05. She was started on a heparin gtt. 12 lead EKG with left bundle branch block. Cardiology consult appreciated. Echo with EF 30-35%. - Continuous cardiac telemetry. - Heparin drip. - cath per cardiology. - continue cardiac regimen. Increase statin. Hyperkalemia Initial K+ 6.1, improved. On olmesartan as an outpt. - recommend discontinuation of home ARB. - follow BMP and treat accordingly. - telemetry. Acute on chronic renal insufficiency Improved. The pt follows with nephrology as an outpt. - Monitor BMP. - Avoid nephrotoxins. - nephrology follow-up as an outpt. UTI UA indicative of infection. Pt also with leukocytosis. - start ceftriaxone and follow urine culture. Mildly elevated lipase US: Cholelithiasis without findings of cholecystitis or pancreatitis; Multiple left renal cysts. Lipase improved. - resolved. DVT prophylaxis - Currently on heparin gtt Discharge Planning Awaiting cath. Jaspreet Mcnally DO November 08, 2016 10:07
[2016-11-08] MEDS ORDERED: HEPARIN-NS/PF INJ 500 ML ONE (10:45)
[2016-11-08] MEDS ORDERED: MIDAZOLAM HCL 2 MG/2 ML VIAL ONE (10:48)
[2016-11-08] MEDS ORDERED: HEPARIN SODIUM - IV 10,000 UNITS/10 ML VIAL ONE (10:49)
[2016-11-08] MEDS ORDERED: VERAPAMIL HCL 5 MG/2 ML VIAL ONE (10:49)
[2016-11-08 10:57] LABS: HEMOGLOBIN A1a 0.9 %; HEMOGLOBIN A1b 2.1 %; HEMOGLOBIN Ao 82.3 %; HEMOGLOBIN LA1C 2.6 %; HEMOGLOBIN P3 6.1 %
--- NOTE | 2016-11-08 11:38 | CATHPROC ---
Ellie HIS Report Study Information Study Number Admission Scheduled Start Study Start [id number]/06/2016 11/08/2016 Nov 08 2016 10:28AM Referring Institution Admit Source Facility Department 1 Other [facility] - Rigging Up Worker Physician and Clinical Staff Initial Billy Palafox Bolt Sorter Baylee Reyes,RN Recorder Benji Alfredo,RT(R) TECH2 Recorder Freddy Byrne,RT(R) Osei Bowden RCIS(BS) Procedures Performed Procedure Location (Site) Vessel Name Coronary Angiograms LCA Left Coronary Coronary Angiograms RCA Right Coronary L Heart Cath LV Gram-hand inj. LV LV Ventricle Equipment Time Regulatory Affairs Analyst Description Size Mfg Part Number Used/Scraped TRANSDUCER, TRUWAVE 10:30 S[employer]YES * [id number] Used W/STOCKCOCK 11:26 Alminder MEDICAL VASCADE, FR5 CLOSURE SYSTEM FR 5 [id number] Used [id number] *[id number] [id number] *[id number] [id number] *[id number] 10:30 JP3 Measurement PACK, CCL CUSTOM * Used *[id number] 10:30 JP3 Measurement SUPPORT, ARTERIAL ADULT [id number] Used [id number] 10:30 Who@ MEDICAL WIRE, 3MMJ .035 180CM 180CM Used *[id number] 10:30 NAMIC MANIFOLD, 4 PORT * Used *[id number] 10:30 NYCOMED OMNIPAQUE, 350 MG, 100ML 100ML [id number] Used [id number] 10:30 [facility] BLANKET,WARM AIR CCL * Used *[id number] 11:13 TERUMO MEDICAL SHEATH, FR5 TERUMO (10CM) FR 5 [id number] Used SHEATH, FR6 TRANSRADIAL 10:30 TERUMO MEDICAL FR 6 [id number] Used SLENDER 10CM History: Current Medications Medication Dosage/Unit Route Frequency Last Date/Time Taken Insulin Synthroid ASA History: Allergies Allergy Reaction No Known Allergies Amlodipine Angioedema History: Risk Factors Family History of Hypertension Dyslipidemia Previous MO Previous Heart Failure Premature CAD Yes Yes Yes No No Prior Valve Prior PCI Prior CABG Surgery No No No Cerebrovascular Peripheral Artery Chronic Lung On Dialysis Diabetes Diabetes Therapy Disease Disease Disease No No No Yes Yes Other History: Symptoms/Diagnosis Selection Items Chest pain History: CV Disease Selection Items Known CAD History: Stress Tests Stress or Imaging Studies Performed No History: Other Disease Selection Items COPD HTN History: Other Current Smoker No Labs Hgb (g/dl) Hct (%) WBC (l/cumm) Platelets (thousands) 12.00-18.00 37.00-55.00 4.80-10.80 140.00-450.00 11.6 34.9 12.5 270 BUN (mg/dl) Creatinine (mg/dl) BUN:Creatinine (1:x) 8.00-20.00 0.10-9.00 10.00-20.00 21 1.2 17.5 Na (meq/l) K (meq/l) 138.00-146.00 3.80-5.10 133 4.4 INR (PTT:PT) 0.50-2.00 1 Troponin I (ng/ml) CPK-MB (ng/ML) 0.40-2.30 0.00-7.00 2.3 Not Drawn Medication Medication Total Dose (Bolus/Oral) Medication Total Dosage/Unit 1% XYLOCAINE 40 mL FENTANYL 50 mcg VERSED 2 mg Medications (Bolus/Oral) Medication Time Given Dosage/Unit Administered By Reason 1% XYLOCAINE 11/08/2016 11:08:06 AM 20 mL York-Tyrel, Billy 20 mL 1% XYLOCAINE given in lab by Billy Chen in Right Wrist via Subcutaneous. VERSED 11/08/2016 11:08:29 AM 1 mg Baylee Reyes 1 mg VERSED given in lab by Baylee Reyes RN in Right Wrist via Peripheral IV. FENTANYL 11/08/2016 11:09:20 AM 25 mcg Baylee Reyes 25 mcg FENTANYL given in lab by Baylee Reyes RN in Right Wrist via Peripheral IV. VERSED 11/08/2016 11:12:49 AM 1 mg Germán Reyesa 1 mg VERSED given in lab by Baylee Reyes RN in Right Wrist via Peripheral IV. 1% XYLOCAINE 11/08/2016 11:13:06 AM 20 mL York-Tyrel, Billy 20 mL 1% XYLOCAINE given in lab by Billy Chen in Right Groin via Subcutaneous. FENTANYL 11/08/2016 11:13:56 AM 25 mcg Germán Reyesa 25 mcg FENTANYL given in lab by Baylee Reyes RN in Right Wrist via Peripheral IV. Medication (Drip) Medication Time Given Dosage/Unit Concentration/Unit Diluent (ml) Solution IV Solutions 11/08/2016 10:33:55 AM 0 mL (IV) 500 NaCl .9 Patient arrived on IV Solutions given by Baylee Reyes RN via Peripheral IV. Pump/Drip Flow = 20 ml/hr using NaCl .9. Initial Case Assessment Cardiovascular HR Rhythm NIBP Chest Pain 83 sr 136/87 0 Edema Present Skin color Skin None Normal Warm Dry Circulatory - Right Pulses Dorsalis Pedis Femoral Radial 2 2 2 Scale (0,1,2,3,4,d) Scale (0,1,2,3,4,d) Neurological State Oriented to time-place- Alert Moves all extremities person Respiration - General SpO2 (%) 99 Chronological Log Time Study Chronological Log 10:33:42 Patient arrived via Bed. 10:33:43 Patient Name, D.O.B, / Armband Verified By R.N. 10:33:44 Consent signed by the physician and the patient and verified by the Rigging Up Worker staff. 10:33:47 Allens test performed on the right radial and ulnar artery. 10:33:48 Patient has been NPO for Less than 6Hrs. 10:33:49 Skin Breakdown- none 10:33:50 Patient Warmer Placed on the Table. 10:33:53 Miguelina Prominences Protected 10:33:54 A # 20 IV was noted in the Forearm (right). Grade = 0 Patient arrived on IV Solutions given by Baylee Reyes RN via Peripheral IV. Pump/Drip Dane w = 20 ml/hr using 10:33:55 NaCl .9. 10:33:57 History and physical on the chart or being dictated. Assessment: Initial Case, HR=83 BPM, Rhythm=sr, OFIE=913/87 mmhg, Chest Pain=0, Edema=None, Col or=Normal, Skin = Warm, Dry 10:33:58 Right Pulses: Fili Ped=2, Femoral=2, Radial=2 Neurological: State=Alert, Ox3, BERG Respiration: SpO2=99 % 10:34:02 Table restraints applied according to hospital policy 10:34:05 Right groin prepped with 2% chlorhexidine, and with a 3 min. waiting time. 10:34:06 Right radial, right brachial, and groin(s) prepped with 2% chlorhexidine, and with a 3 min. waiting time. Vitals capture started with the following parameters, Patient=Adult, Interval=5 min, Initial Pr zdrfdz=886 mmHg, 10:42:33 Deflation Rate=5 mmHg 10:43:10 HR=80 bpm, OGBV=501/81 mmhg, SpO2=98.0 %, Resp=16 B/min, Pain=0, Abhishek=10, Lockhart=2 10:44:07 Reference ECG taken 10:48:07 HR=81 bpm, FIEM=167/87 mmhg, SpO2=99.0 %, Resp=17 B/min, Pain=0, Abhishek=10, Lockhart=2 10:51:01 A # 20 IV was noted in the Wrist (right). Grade = 0 10:53:06 HR=83 bpm, VNDZ=881/82 mmhg, Resp=17 B/min 10:55:14 freddy relieved don 10:58:09 HR=81 bpm, NDJQ=464/76 mmhg, SpO2=97.0 %, Resp=18 B/min 10:58:41 MD notified ready 11:01:01 MD responded 11:03:10 HR=80 bpm, IKQH=056/75 mmhg, SpO2=95.0 %, Resp=17 B/min 11:05:03 Pressure channel 1 zeroed. 11:06:56 MD arrived. Time Out. Correct patient, correct procedure,correct physician, ,power injector not loaded with contrast with surgical 11:07:37 team present. Time Out Concurred by MD, individual staff and WHEEL GRINDER in procedure 11::56 Case Start 11:08:06 20 mL 1% XYLOCAINE given in lab by Billy Chen in Right Wrist via Subcutaneous. 11:08:07 HR=82 bpm, GBBF=068/82 mmhg, SpO2=97.0 %, Resp=20 B/min 11:08:29 1 mg VERSED given in lab by Baylee Reyes, GAURANG in Right Wrist via Peripheral IV. 11:09:20 25 mcg FENTANYL given in lab by Baylee Reyes RN in Right Wrist via Peripheral IV. 11:11:48 Vitals capture stopped. Vitals capture started with the following parameters, Patient=Adult, Interval=5 min, Initial Pr nsitar=198 mmHg, 11:11:50 Deflation Rate=5 mmHg 11:12:00 Dr. York unable to get access in right radial. moving to the right femoral artery 11:12:25 HR=82 bpm, VUPA=359/78 mmhg, SpO2=97.0 %, Resp=21 B/min 11:12:49 1 mg VERSED given in lab by Baylee Reyes RN in Right Wrist via Peripheral IV. 11:13:06 20 mL 1% XYLOCAINE given in lab by Billy Chen in Right Groin via Subcutaneous. 11:13:54 Access site was Right Femoral Artery. micropunture used 11:13:56 25 mcg FENTANYL given in lab by Baylee Reyes RN in Right Wrist via Peripheral IV. 11:14:44 A SHEATH, FR5 TERUMO (10CM) FR 5 was advanced into the Fem Art (right) using the [place] te chnique. 11:15:13 An injection in the Fem Art (right) was made through the SHEATH, FR5 TERUMO (10CM) FR 5. A JR 4.0 INFINITI CATHETER FR 5 was advanced over a wire. OMNIPAQUE, 350 MG, 100ML 100ML was us ed for 11:15:55 injections. Recorded Pressure: LV, HR=81, Condition=Condition 1 11:16:37 (Left Ventricle) LV 140/9/17 11:16:54 The LV was manually injected with 10 cc's and visualized. OMNIPAQUE, 350 MG, 100ML 100ML us ed. Recorded Pressure: LV, Ao, HR=82, Condition=Condition 1 11:17:10 (Left Ventricle) LV 140/9/17, (Aorta) Ao 140/68/100 11:17:24 HR=76 bpm, GTAJ=007/69 mmhg, SpO2=95.0 %, Resp=21 B/min 11:18:13 The RCA was injected and visualized at various angles. OMNIPAQUE, 350 MG, 100ML 100ML used . 11:18:37 Catheter was removed A JL 4.0 INFINITI CATHETER FR 5 was advanced over a wire. OMNIPAQUE, 350 MG, 100ML 100ML was us ed for 11:18:40 injections. Recorded Pressure: Ao, HR=78, Condition=Condition 1 11:19:44 (Aorta) Ao 139/72/100 11:19:58 The LCA was injected and visualized at various angles. OMNIPAQUE, 350 MG, 100ML 100ML used . 11:22:21 HR=78 bpm, RTFV=282/79 mmhg, SpO2=94.0 %, Resp=18 B/min 11:23:48 Dr. York is reviewing the films. 11:24:16 Catheter was removed 11:25:26 VASCADE, FR5 CLOSURE SYSTEM FR 5 placement in the Fem Art (right) 11:26:50 Sheath removed; pressure applied to access site. 11:27:06 Case End 11:27:10 Sterile dressing applied to site 11:27:13 No case complications noted. 11:27:22 Bedside Report will be given. 11:27:25 HR=81 bpm, GCWU=837/80 mmhg, SpO2=93.0 %, Resp=21 B/min 11:28:37 Implantable Device card placed in patient's chart. 11:28:49 A Left Heart Cath was performed. 11:29:03 Clinical correlaton risk stratification. 11:32:19 Vitals capture stopped. 11:38:55 Patient moved to [facility] End Study - Contrast Media Used In Study Contrast Total Opened (mL) Total Used (mL) Total Wasted (mL) Omnipaque 150 60 90 End Study - Maximum Contrast Load Max Contrast Load (mL) 263.3 End Study - Radiation Exposure Fluoro Time (minutes) 2.6 End Study - Sheaths Sheaths Pulled By Sheath Hold Time (min) Billy Chen End Study - Patient Disposition Complications Transferred To Interventional Outcome No Telemetry Bed No attempt made
[2016-11-08] MEDS ORDERED: ATROPINE SULFATE 1 MG/ML VIAL IV PRN (11:45)
[2016-11-08] MEDS ORDERED: ONDANSETRON HCL 4 MG/2 ML VIAL IV PRN (12:00)
--- NOTE | 2016-11-08 12:28 | MA ---
cc: ZOHRA SETH DATE 11/08/16 DATE OF 1940 PROCEDURE PERFORMED 1. Left heart catheterization. 2. Selective right and left coronary angiography. 3. Left ventriculogram. 4. Selective right common femoral artery angiography. INDICATION [id number]. DESCRIPTION OF PROCEDURE Consent signed. The patient was brought into the cardiac technical laboratory asst in fasting state. The right groin was prepped and draped in sterile fashion using 1% lidocaine for local anesthesia, a micropuncture kit a 5-Sami sheath was inserted into the right common femoral artery. Right common femoral artery angiography was performed to confirm position of this sheath. Then selective right and left coronary angiography was performed with a JR-4 and JL-4 diagnostic catheters. Angiography was taken in multiple views. The JR-4 diagnostic catheter was introduced over a wire to a left ventricle. This was followed by pressure recordings, left ventriculogram and pullback. The patient tolerated the procedure well without complications. Estimated blood loss less than 30 cc. Total contrast used 75 cc. The right groin access site was closed with the vascade closure device. RESULTS The left ventricular pressure was 141/90 with an LVEDP of 18. The aortic pressure was 141/72 with a mean of 100. Left ventriculogram revealed hypokineses of the anterior and apical wall with an estimated ejection fraction of 40%. There was no gradient upon pullback from the left ventricle to aorta. ANGIOGRAPHY 1. The right coronary artery is a nondominant vessel. This vessel is small and it has no obstructive coronary artery disease. 2. The left main is short, mainly this is a separate ostium system. 3. The LAD is a transapical vessel, is tortuous. It has minimal calcification. It has patent three diagonals which are small. It has a prominent septal that bifurcates into the myocardium. 4. Left circumflex artery is a dominant vessel giving off the PDA, it has minimal luminal irregularities throughout. It has three OM vessels which are patent with nonobstructive CAD. The vessel going to the PDA has a distal 20% lesion. CONCLUSION 1. Moderate LV systolic dysfunction/nonischemic cardiomyopathy/ takotsubo cardiomyopathy. 2. Elevated LVEDP. RECOMMENDATIONS Continue medical management per primary team. Zohra Seth MD CENTRIFUGE OPERATOR/EO /11:39 AM /12:00 PM [email or web address]
[2016-11-08] MEDS ORDERED: IOHEXOL 350 MG/ML 100 ML BTL (for Cath Lab) OTHER ONE (14:23)
[2016-11-08] MEDS: cefTRIAXone INJ 1,000 MG in SODIUM CHLORIDE 0.9% INJ 100 ML IV SCH (14:30)
[2016-11-08] MEDS ORDERED: ATORVASTATIN 40 MG TAB PO SCH (21:00)
[2016-11-09] VITALS (16 sets, daily range): BP systolic 113–142; BP diastolic 70–72; PULSE 66–89; RESP 16–18; TEMP 97.9–98; O2SAT 97
[2016-11-09] MEDS: CHLORHEXIDINE GLUCONATE 2 % 1 PACK (2 CLOTHS) TOP SCH (03:51)
[2016-11-09 04:44] LABS: MEAN CELL VOLUME 84.8 FL (80.0-100.0); MEAN CORPUSCULAR HEMOGLOBIN 28.4 PG (27.0-34.0); MEAN CORPUSCULAR HGB CONC 33.4 % (32.0-36.0); PLATELET COUNT 235 TH/MM3 (150-450); RED BLOOD COUNT 4.01 MIL/MM3 (4.00-5.30); RED CELL DISTRIBUTION WIDTH 13.5 % (11.6-17.2); REVIEW FLAG FINAL; WHITE BLOOD COUNT 11.3 TH/MM3 (4.0-11.0)
[2016-11-09 05:10] LABS: BICARBONATE 21.2 MEQ/L (21.0-32.0); MAGNESIUM 1.4 MG/DL (1.5-2.5); POTASSIUM 4.6 MEQ/L (3.5-5.1)
[2016-11-09] MEDS: INSULIN ASPART SUPPLEMENTAL SCALE SQ SCH ×2 (06:06→12:42)
--- NOTE | 2016-11-09 07:41 | PD.CARD.PN ---
Subjective Subjective Remarks PT without complaints Objective Medications Current Medications Medications (Trade) Dose Ordered Sig/Mag Route Start Time Stop Time Status Last Admin (Heparin Inj) 5,000 units UNSCH PRN IV 11/07/16 03:45 Heparin Sodium (Porcine) 2500 units 2,500 units UNSCH PRN IV 11/07/16 03:45 (Heparin-D5W Inj) 250 ml @ 0 mls/hr TITRATE IV 11/06/16 21:45 11/08/16 08:19 (NS Flush) 2 ml UNSCH PRN IV FLUSH 11/06/16 23:15 (NS Flush) 2 ml BID IV FLUSH 11/07/16 09:00 11/08/16 21:00 (Narcan Inj) 0.4 mg UNSCH PRN IV 11/06/16 23:15 Miscellaneous Information 1 Q361D XX 11/07/16 02:00 11/07/16 02:00 (Chlorhexidine 2% Cloth) 3 pack Taper DAILY@04 TOP 11/07/16 04:00 11/03/17 03:59 11/08/16 04:00 (Chlorhexidine 2% Cloth) 3 pack UNSCH PRN TOP 11/07/16 02:00 (Tylenol) 650 mg Q4H PRN PO 11/07/16 06:00 11/08/16 17:34 (Apresoline Inj) 10 mg Q30M PRN IV PUSH 11/07/16 06:00 (D50w (Vial) Inj) 50 ml Q1HR PRN IV PUSH 11/07/16 06:30 (Nitrostat Sl) 0.4 mg Q5M PRN SL 11/07/16 07:00 11/07/16 06:58 (Aspirin Chew) 81 mg DAILY CHEW 11/07/16 09:00 11/08/16 08:18 (Coreg) 6.25 mg Q12HR PO 11/07/16 09:00 11/08/16 21:05 (Protonix) 40 mg DAILY PO 11/07/16 13:45 Atorvastatin Calcium 40 mg 40 mg HS PO 11/08/16 21:00 11/08/16 21:05 (Rocephin Inj/NS Inj) 100 ml @ 200 mls/hr Q24H IV 11/08/16 11:00 11/08/16 14:30 (Atropine Inj) 0.5 mg UNSCH PRN IV 11/08/16 11:45 (Zofran Inj) 4 mg Q4H PRN IV 11/08/16 12:00 Vital Signs / I&O Vital Signs Date Time Temp Pulse Resp B/P Pulse Ox O2 Delivery O2 Flow Rate FiO2 11/09/16 06:00 75 11/09/16 05:00 80 11/09/16 04:00 76 11/09/16 04:00 89 18 113/71 97 11/09/16 03:00 86 11/09/16 02:00 82 11/09/16 01:00 80 11/09/16 00:00 89 18 142/72 97 11/09/16 00:00 78 11/08/16 23:00 92 11/08/16 22:00 92 11/08/16 21:00 84 11/08/16 20:00 97.9 85 18 145/88 97 11/08/16 20:00 84 11/08/16 19:00 84 11/08/16 18:00 86 11/08/16 17:00 86 11/08/16 16:00 97.7 85 16 130/73 99 11/08/16 16:00 84 11/08/16 16:00 97.7 85 16 130/73 99 11/08/16 15:00 82 11/08/16 14:30 82 16 125/70 100 11/08/16 14:00 82 16 122/75 100 11/08/16 14:00 85 11/08/16 13:45 86 16 134/72 99 11/08/16 13:20 86 11/08/16 13:20 98.2 86 16 143/70 100 11/08/16 11:55 99 11/08/16 08:00 98.6 84 16 145/76 99 11/08/16 08:00 84 I/O 11/08/16 11/08/16 11/08/16 11/09/16 11/09/16 11/09/16 07:00 15:00 23:00 07:00 15:00 23:00 Intake Total 298 ml 460 ml 240 ml Output Total 450 ml 300 ml 350 ml 1100 ml Balance -152 ml -300 ml 110 ml -860 ml Intake Oral 240 ml 360 ml 240 ml IV Total 58 ml 100 ml Output Urine Total 450 ml 300 ml 350 ml 1100 ml # Voids 1 # Bowel Movements 0 0 Physical Exam GENERAL: Well developed, well nourished. No acute distress. HEENT: Jugular venous pressure is normal. CHEST: Lungs clear to auscultation bilaterally. Unlabored respiratory effort. CARDIAC: Regular rate and rhythm without S3, S4, or murmur. ABDOMEN: Soft, nontender, no hepatosplenomegaly. Bowel sounds present. EXTREMITIES: No clubbing, cyanosis, or edema. right groin c/d/i no e/h 2+ DP Laboratory Laboratory Tests Test 11/08/16 11/09/16 10:01 04:02 Hemoglobin A1c 7.1 % White Blood Count 11.3 TH/MM3 Red Blood Count 4.01 MIL/MM3 Hemoglobin 11.4 GM/DL Hematocrit 34.0 % Mean Corpuscular Volume 84.8 FL Mean Corpuscular Hemoglobin 28.4 PG Mean Corpuscular Hemoglobin 33.4 % Concent Red Cell Distribution Width 13.5 % Platelet Count 235 TH/MM3 Mean Platelet Volume 8.4 FL Sodium Level 133 MEQ/L Potassium Level 4.6 MEQ/L Chloride Level 102 MEQ/L Carbon Dioxide Level 21.2 MEQ/L Anion Gap 10 MEQ/L Blood Urea Nitrogen 27 MG/DL Creatinine 1.35 MG/DL Estimat Glomerular Filtration 38 ML/MIN Rate Random Glucose 145 MG/DL Calcium Level 8.6 MG/DL Magnesium Level 1.4 MG/DL Assessment and Plan Assessment and Plan Non-ST elevation SD - EF 40% by cath, no CAD -med rx, on BB, asa Hyperkalemia and hyponatremia - better, This is being managed by the primary team. Hypertension - Dyslipidemia - ok for d/c Yvette Landin MD November 09, 2016 07:41
[2016-11-09] MEDS: CARVEDILOL 6.25 MG TAB PO SCH (09:40)
[2016-11-09] MEDS: ASPIRIN 81 MG CHEW TAB CHEW SCH (09:40)
[2016-11-09] MEDS: SODIUM CHLORIDE 0.9% FLUSH 10 ML FLUSH IV FLUSH SCH (09:40)
[2016-11-09] MEDS: PANTOPRAZOLE SOD 40 MG DELAYED RELEASE TAB PO SCH (09:40)
[2016-11-09] MEDS: cefTRIAXone INJ 1,000 MG in SODIUM CHLORIDE 0.9% INJ 100 ML IV SCH (11:34)
[2016-11-09] MEDS ORDERED: MAGNESIUM OXIDE 400 MG TAB PO SCH (14:00)
[2016-11-09] MEDS ORDERED: CARV6.25 PO (14:19)
[2016-11-09] MEDS ORDERED: CIPR250T2 PO (14:21)
--- NOTE | 2016-11-09 14:22 | HHI.DCPOC ---
Discharge Care Plan Diagnosis: (1) NSTEMI (non-ST elevated myocardial infarction) (2) Hyperkalemia (3) Renal cysts, acquired, bilateral (4) Urinary tract infection (5) Hyponatremia Goals to Promote Your Health * To prevent worsening of your condition and complications * To maintain your health at the optimal level Directions to Meet Your Goals Take your medications as prescribed Follow your dietary instruction Follow activity as directed Keep your appointments as scheduled Take your immunizations and boosters as scheduled If your symptoms worsen call your PCP, if no PCP go to Urgent Care Center or Emergency Room Smoking is Dangerous to Your Health. Avoid second hand smoke Call the 24-hour hour crisis hotline for domestic abuse at Ramiro Diamond MD November 09, 2016 14:22
[2016-11-09] MEDS ORDERED: ATOR40TA16 PO (14:26)
[2016-11-09] MEDS ORDERED: FURO1TAB62 PO (14:33)
[2016-11-09] MEDS ORDERED: MAGN400T3 PO (14:34)
--- NOTE | 2016-11-09 14:36 | HHI.DS ---
Discharge Summary Admission Date November 06, 2016 at 22:38 Discharge Date: November 09, 2016 Admitting Diagnosis NSTEMI, Pancreatitis, hyperkalemia (1) Hyperkalemia ICD Code: E87.5 Diagnosis: Principal (2) Hyponatremia ICD Code: E87.1 Diagnosis: Principal (3) Renal cysts, acquired, bilateral ICD Code: N28.1 Diagnosis: Principal (4) NSTEMI (non-ST elevated myocardial infarction) ICD Code: I21.4 Diagnosis: Principal Procedures sp cardiac catheterization - ef 40%, no CAD Brief History - From Admission Written by Ivett Blakely, acting as scribe for Dr. Love on 11/07/16 at 05:05. Mrs. Whiting is a 76-year-old female with a history of diabetes and hypertension who presented to the emergency room on 11/06/2016 complaining of chest pain. EKG showed left bundle branch block (possibly new), troponin I was elevated at 0.41 , potassium elevated at 6.1, and lipase also elevated at 497. The patient was attending her granddaughters graduation at the [employer] when the patient developed pain in the central chest and her back. The pain began at about 5 p.m. last evening while the patient was climbing stairs and was not relieved by rest. Symptoms were not exacerbated by inspiration and were accompanied by a small amount of diaphoresis. Back pain improved with massage. Patient complaining of right shoulder pain during visit worse with blood pressure cuff inflation. Denies chest pain that brought her to ER yesterday. Denies nausea, vomiting, fever, shortness of breath, orthopnea, dysuria, hematuria, and urinary frequency. Has a history of leg swelling for "a long time" Then patient had an Echo and Angiogram 4 years ago for chest pain - tests were negative. CBC/BMP: 11/09/16 0402 11/09/16 0402 Significant Findings Laboratory Tests Test 11/06/16 11/07/16 11/07/16 11/07/16 20:28 00:15 04:11 09:24 White Blood Count 14.3 TH/MM3 12.5 TH/MM3 (4.0-11.0) (4.0-11.0) Hemoglobin 11.5 GM/DL (11.6-15.3) Neutrophils (%) (Auto) 72.7 % 75.0 % (16.0-70.0) (16.0-70.0) Neutrophils # (Auto) 10.4 TH/MM3 9.4 TH/MM3 (1.8-7.7) (1.8-7.7) Monocytes # (Auto) 1.0 TH/MM3 (0-0.9) Sodium Level 129 MEQ/L 131 MEQ/L 132 MEQ/L (136-145) (136-145) (136-145) Potassium Level 6.1 MEQ/L 5.2 MEQ/L 5.6 MEQ/L (3.5-5.1) (3.5-5.1) (3.5-5.1) Blood Urea Nitrogen 33 MG/DL (7-18) 29 MG/DL (7-18) 26 MG/DL (7-18) Creatinine 1.40 MG/DL 1.23 MG/DL 1.16 MG/DL (0.50-1.00) (0.50-1.00) (0.50-1.00) Estimat Glomerular Filtration 37 ML/MIN (>89) 43 ML/MIN (>89) 46 ML/MIN (>89) Rate Random Glucose 171 MG/DL 118 MG/DL 122 MG/DL (74-106) (74-106) (74-106) Troponin I 0.41 NG/ML 3.05 NG/ML (0.02-0.05) (0.02-0.05) Total Protein 8.6 GM/DL (6.4-8.2) Albumin 3.3 GM/DL (3.4-5.0) Lipase 497 U/L (73-393) Carbon Dioxide Level 19.8 MEQ/L (21.0-32.0) Hematocrit 34.9 % (35.0-46.0) Activated Partial 65.4 SEC 52.7 SEC Thromboplast Time (24.3-30.1) (24.3-30.1) Test 11/07/16 11/07/16 11/08/16 11/08/16 13:48 21:30 00:10 04:46 Blood Urea Nitrogen 21 MG/DL (7-18) 22 MG/DL (7-18) 21 MG/DL (7-18) Creatinine 1.22 MG/DL 1.27 MG/DL 1.23 MG/DL (0.50-1.00) (0.50-1.00) (0.50-1.00) Estimat Glomerular Filtration 43 ML/MIN (>89) 41 ML/MIN (>89) 43 ML/MIN (>89) Rate Random Glucose 184 MG/DL 130 MG/DL 140 MG/DL (74-106) (74-106) (74-106) Troponin I 2.39 NG/ML (0.02-0.05) Urine Turbidity HAZY (CLEAR) Urine Leukocyte Esterase MOD (NEG) Urine WBC 18 /hpf (0-5) Urine Bacteria RARE /hpf (NONE) Urine Mucus FEW /lpf (OCC) Sodium Level 134 MEQ/L 133 MEQ/L (136-145) (136-145) Activated Partial 53.5 SEC Thromboplast Time (24.3-30.1) Carbon Dioxide Level 20.9 MEQ/L (21.0-32.0) Triglycerides Level 185 MG/DL (42-150) Cholesterol Level 210 MG/DL (120-200) LDL Cholesterol 129 MG/DL (0-99) Test 11/08/16 11/09/16 10:01 04:02 Hemoglobin A1c 7.1 % (4.3-6.0) White Blood Count 11.3 TH/MM3 (4.0-11.0) Hemoglobin 11.4 GM/DL (11.6-15.3) Hematocrit 34.0 % (35.0-46.0) Sodium Level 133 MEQ/L (136-145) Blood Urea Nitrogen 27 MG/DL (7-18) Creatinine 1.35 MG/DL (0.50-1.00) Estimat Glomerular Filtration 38 ML/MIN (>89) Rate Random Glucose 145 MG/DL (74-106) Magnesium Level 1.4 MG/DL (1.5-2.5) Imaging Last Impressions Abdomen Ultrasound 11/07/16 0000 Signed Impressions: Service Date/Time: Monday, November 07, 2016 09:34 - CONCLUSION: 1. Cholelithiasis without findings of cholecystitis or pancreatitis 2. Multiple left renal cysts 1. Keagan Shi MD Chest X-Ray 11/06/162020 Signed Impressions: Service Date/Time: Sunday, November 06, 2016 20:32 - CONCLUSION: No acute disease. Frantz Ryder MD PE at Discharge GENERAL: This is a well-nourished, well-developed patient, in no apparent distress. SKIN: No rashes, ecchymoses or lesions. Cool and dry. HEAD: Atraumatic. Normocephalic. EYES: No scleral icterus. No injection or drainage. ENT: Nose without bleeding, purulent drainage. NECK: Trachea midline. No JVD or lymphadenopathy. CARDIOVASCULAR: Regular rate and rhythm without murmurs, gallops, or rubs. RESPIRATORY: Clear to auscultation. Breath sounds equal bilaterally. No wheezes , rales, or rhonchi. GASTROINTESTINAL: Abdomen soft, non-tender, nondistended. No guarding. MUSCULOSKELETAL: Extremities without clubbing, cyanosis, or edema. NEUROLOGICAL: Awake and alert. Motor and sensory grossly within normal limits. Normal speech. PSYCH: Calm. Hospital Course NSTEMI/Chest pain Troponin peaked at 3.05. She was started on a heparin gtt. 12 lead EKG with left bundle branch block. Cardiology consult appreciated. Echo with EF 30-35%. - Continuous cardiac telemetry. - Heparin drip. - Cardiac cath did not show CAD, Ef 40% - Patient discharged on aspirin, Beta jemma and statin Hyperkalemia Initial K+ 6.1, improved. On olmesartan as an outpt. - recheck K was 5.2. - recommend discontinuation of home ARB. - follow BMP and treat accordingly. - telemetry. Acute on chronic renal insufficiency Improved with IV fluids. The pt follows with nephrology as an outpt. - Monitor BMP. - Avoid nephrotoxins. - nephrology follow-up as an outpt. UTI UA indicative of infection. Pt also with leukocytosis. - Treated w IV Rocephin. Mildly elevated lipase US: Cholelithiasis without findings of cholecystitis or pancreatitis; Multiple left renal cysts. Lipase improved. - resolved. DVT prophylaxis - Patient was on heparin gtt Pt Condition on Discharge: Stable Discharge Disposition: Discharge Home Discharge Time: > 30 minutes Discharge Instructions DIET: Follow Instructions for: Heart Healthy Diet, Renal Failure Diet Activities you can perform: Regular-No Restrictions Activities to Avoid: Strenuous Activity Follow up Referrals: Nephrology - 1 Week PCP Follow-up - 2-3 Days New Medications: Ciprofloxacin (Ciprofloxacin) 250 Mg Tab 250 MG PO BID Infection #10 Ref 0 TAB Furosemide (Lasix) 20 Mg Tab 20 MG PO DAILY cardiomyopthy #30 Ref 0 TAB Atorvastatin (Atorvastatin) 40 Mg Tab 40 MG PO HS Cholesterol Management #31 TAB Carvedilol (Coreg) 6.25 Mg Tab 6.25 MG PO Q12HR cardiomyopathy #62 TAB Magnesium Oxide (Magnesium Oxide) 241.3 Mg Tab 400 MG PO DAILY low magnesium #7 TAB Continued Medications: Aspirin (Aspir-81) 81 Mg Tab 81 MG PO DAILY TAB Insulin Aspart Protamine/Aspar (Novolog Mix 70/30) 100 Units/Ml Inj 16 UNITS SQ DAILYAC 16 UNITS AM/ 8 UNITS PM #10 ML Linagliptin Tab (Tradjenta) 5 Mg Tab 5 MG PO DAILY TAB Multiple Vitamins W/ Minerals (Centrum) Tab 1 TAB PO DAILY TAB Pantoprazole (Protonix) 40 Mg Tab 40 MG PO DAILY Reflux #30 Ref 0 TAB Discontinued Medications: Fenofibrate (Fenofibrate) 145 Mg Tab 145 MG PO DAILY TAB Ramiro Diamond MD November 09, 2016 14:35
== END 2016-11-09 15:27 | disposition home or self-care (01) | DRG 281 ==
LOC: NEPC 20:18 → NEDA 22:38 → HIME 11-07 02:10 → HCIS 11-08 11:51
PROVIDERS: ADMIT Hospitalist; ATTEND Hospitalist
PROC: B211YZZ Fluoroscopy of Multiple Coronary Arteries using Other Contrast (ICD-10-PCS; 2016-11-08)
PROC: B215YZZ Fluoroscopy of Left Heart using Other Contrast (ICD-10-PCS; 2016-11-08)
PROC: 4A023N7 Measurement of Cardiac Sampling and Pressure, Left Heart, Percutaneous Approach (ICD-10-PCS; principal; 2016-11-08 11:00)
DX: I21.4 Non-ST elevation (NSTEMI) myocardial infarction (principal); N17.9 Acute kidney failure, unspecified; E11.22 Type 2 diabetes mellitus with diabetic chronic kidney disease; E87.1 Hypo-osmolality and hyponatremia; N39.0 Urinary tract infection, site not specified; I51.81 Takotsubo syndrome; E87.5 Hyperkalemia; I10 Essential (primary) hypertension; E03.9 Hypothyroidism, unspecified; I44.7 Left bundle-branch block, unspecified; K21.9 Gastro-esophageal reflux disease without esophagitis; M81.0 Age-related osteoporosis without current pathological fracture; E78.5 Hyperlipidemia, unspecified; N28.1 Cyst of kidney, acquired; N18.9 Chronic kidney disease, unspecified; I12.9 Hypertensive chronic kidney disease with stage 1 through stage 4 chronic kidney disease, or unspecified chronic kidney disease; Z79.4 Long term (current) use of insulin; Z85.118 Personal history of other malignant neoplasm of bronchus and lung
CPT/HCPCS: 71010; 76700; 80048; 80053; 80061; 81001; 82550; 82948; 83036; 83690; 83735; 84484; 85025; 85027; 85610; 85730; 87077; 87086; 87186; 87641; 93005; 93306; 93458; 96374; 96375; 96376; C1760; C1769; C1893; G0269; J0610; J0696; J1644; J1815; J2250; J2270; J3010; J7040; Q9967